=== PATIENT | female | born 1980 | race Caucasian/White ===

== ENCOUNTER → 2017-01-04 | Outpatient (CLI) | payer BC ==
[~2017-01-04] MED LIST: CALC150C PO; DILT-115 PO; FISHOIL PO; LEVO75TA5 PO; MULTTAB58 PO; VITACAP26 PO; ZINC1CAP PO
[2017-01-04 10:36] LABS: BASO % 0.4 %; BASO ABS # 0.02 K/uL (0-0.2); COMPLETE YES; EOS % 1.2 %; HEMATOCRIT 44.2 % (37-47); LYMPH % 23.3 %; LYMPH ABS # 1.21 K/uL (1.2-3.4); MEAN CELL VOLUME 95.3 fL (80-100); MEAN CORPUSCULAR HGB CONC 32.6 g/dl (32-36); MEAN PLATELET VOLUME 10.3 fL (7.4-10.4); MONO % 7.9 %; NEUT % 67.2 %; PLATELET COUNT 177 K/uL (130-400); RED BLOOD COUNT 4.64 M/uL (4.2-5.4)
[2017-01-04 11:13] LABS: ALT/SGPT 18 U/L (12-78); CREATININE 0.93 mg/dl (0.60-1.20)
[2017-01-04 11:16] LABS: ALKALINE PHOSPHATASE 51 U/L (45-117); AST/SGOT 20 U/L (15-37)
== END | disposition home or self-care (01) ==
LOC: C.LAB1850 10:10
PROVIDERS: ATTEND Internal Medicine Rheumatology
DX: M34.1 CR(E)ST syndrome (principal); I73.00 Raynaud's syndrome without gangrene; L94.2 Calcinosis cutis; L98.499 Non-pressure chronic ulcer of skin of other sites with unspecified severity

== ENCOUNTER → 2017-06-27 | Outpatient (CLI) | payer OTHER | END | disposition home or self-care (01) | LOC: C.PAPS 09:36 | PROVIDERS: ATTEND Physician Assistant | DX: Z01.419 Encounter for gynecological examination (general) (routine) without abnormal findings (principal) ==